=== PATIENT | male | born 1950 | race Caucasian/White ===

== ENCOUNTER 2021-07-09 10:21 | Emergency (ER) | payer MEDICARE, OTHER ==
[~2021-07-09] VITALS: Ht 175.3 cm; Wt 99.5 kg
--- NOTE | 2021-07-09 10:42 | PHYS DOC ---
General Adult EDM: Chief Complaint: CHEST PAIN HPI: HPI: Patient is a 71 year old male who presents via EMS from home for reports of chest pain and dizziness. Symptoms began 35 or 45 minutes prior to him calling EMS. He took 2 nitroglycerin at home, this resolved his chest pain. EMS gave 324 mg aspirin in route. He denies any active chest pain, he denies dyspnea, he denies dizziness. When he did have a chest pain, he described midsternal pressure, with mild dyspnea. This is resolved after nitroglycerin. He denies diaphoresis, abdominal pain, nausea or vomiting. He denies numbness, tingling, motor weakness. He denies syncope or near syncope. He reports he feels much better currently. 6 days ago, he went to [facility] for chest pain, and based on his description it sounds like he was diagnosed with a non-ST elevation MT. The next day, i.e. 5 days ago, he went to cardiac [employer] Car[employer], he reports that he had 3 stents placed in at least 2 vessels. He knows that at least one of the stents was placed in the " maker." He has a history of peripheral artery disease and claudication. He has had multiple bilateral femoral artery stent revisions and it sounds like he has an aortofemoral stent in place. He is anticoagulated with warfarin, aspirin, and Plavix. He reports compliance with all medications. He is taking metoprolol as well as a statin medication. He reports compliance with this as well. He was under the impression that if he had to take more than 1 nitroglycerin to relieve chest pain, he should call 911. He has never been to this facility previously. All of his primary care physicians and specialists, including his chief security officer, are at [facility] associated with [facility]. He does not know the name of his chief security officer at [facility]. Unfortunately, our fax machine is not functional at present, therefore we are unable to fax medical record requests at this time. Review of Systems: Review of Systems: Constitutional: Denies fever or chills. [] HENT: Denies nasal congestion or sore throat. [] Respiratory: Denies cough. Reports shortness of breath. Cardiovascular: Reports chest pain, now resolved. Denies syncope or peripheral edema. GI: Denies abdominal pain, nausea, vomiting Musculoskeletal: Denies back pain or joint pain. [] Integument: Denies rash. [] Neurologic: Denies headache, focal weakness or sensory changes. Reports dizziness, currently resolved. Psychiatric: Denies depression or anxiety. [] Heart Score: C/O Chest Pain: Yes HEART Score for Chest Pain: HEART Score for Chest Pain Response (Comments) Value History Moderately Suspicious 1 ECG Nonspecific Repolarizatio 1 Age > 65 2 Risk Factors >3 Risk Factors or Hx CAD 2 Troponin >3 x Normal Limit 2 Total 8 Risk Factors: Risk Factors: DM, Current or recent (<one month) smoker, HTN, HLP, family history of CAD, obesity. Risk Scores: Score 0 - 3: 2.5% MACE over next 6 weeks - Discharge Home Score 4 - 6: 20.3% MACE over next 6 weeks - Admit for Clinical Observation Score 7 - 10: 72.7% MACE over next 6 weeks - Early Invasive Strategies Physical Exam: PE: Constitutional: Well developed, well nourished, no acute distress, non-toxic appearance. [] HENT: Normocephalic, atraumatic Eyes: Sclera are clear and anicteric Neck: Normal range of motion, no tenderness, supple, no stridor. Trachea midline, no JVD Cardiovascular:Heart rate regular rhythm, was 2 radial and +2 posterior tibial pulses bilaterally. Lungs & Thorax: Bilateral breath sounds clear to auscultation, no rales, rhonchi or wheezes. Abdomen: Abdomen is soft, nondistended, nontender to palpation. No palpable pulsatile mass. No audible bruit. Skin: Warm, dry, no erythema, no rash. No jaundice. No pallor. Back: No tenderness, no CVA tenderness. [] Extremities: No tenderness, no cyanosis, no clubbing, ROM intact, bilateral, symmetric 1+ nonpitting lower extremity edema, no calf tenderness Neurologic: He is awake, alert, oriented x3, no facial asymmetry, ambulatory with a steady gait, gross motor function appears to be normal, speech is clear and fluent Psychologic: Affect normal, judgement normal, mood normal. [] EKG: EKG: EKG is interpreted at 1033 Rhythm is sinus Rate is 51 bpm [place] is left artifact No STEMI No acute ischemia EKG is interpreted at 1105 Rhythm is sinus Rate is 54 bpm [place] is left No STEMI No acute ischemia Radiology/Procedures: Radiology/Procedures: IMAGING REPORT Signed PATIENT: PATRICE MEDRANO ACCOUNT: [id number] : 1950 LOCATION: ER AGE: 71 SEX: M EXAM STATUS: PRE ER ORD. PHYSICIAN: GUZMAN ULRICH DO REASON: chest pain PROCEDURE: PORTABLE CHEST 1V XR CHEST 1V Clinical Indication: Reason: chest pain / Spl. Instructions: / History: Comparison: None. Findings: Atherosclerotic aortic arch. The cardiomediastinal silhouette is normal. Lungs are clear. There is no pneumothorax. No pleural effusion is appreciated. No acute bone abnormality. IMPRESSION: No acute cardiopulmonary process. Electronically signed by: Sekou Reynaga MD (07/09/2021 11:02 AM) [id number] DICTATED and SIGNED BY: SEKOU REYNAGA MD DATE: 07/09/21 [id number] 0 Course & Med Decision Making: Course & Med Decision Making Pertinent Labs and Imaging studies reviewed. (See chart for details) The patient has remained chest pain-free here. He reports no further dizziness or dyspnea. He has some bradycardia, this has been longstanding for him. He is vital signs have otherwise been stable. He manifest no evidence of distress. First troponin is elevated. I am unsure what his baseline is or what this compares to with his regular troponin test from [facility]. I have recommended hospitalization, serial troponin exams and cardiology consultation. He request transfer to [facility], I contacted them, and the patient was accepted for transfer/admission by hospitalist, Dr. Clark. Silvestre Disclaimer: Silvestre Disclaimer: This electronic medical record was generated, in whole or in part, using a voice recognition dictation system. Departure Departure Impression: Primary Impression: Chest pain Additional Impressions: Coronary artery disease History of coronary artery stent placement Elevated troponin level History of myocardial infarction Disposition: 02 SHORT TERM HOSPITAL ([facility]) Condition: STABLE GUZMAN ULRICH DO Jul 09, 2021 10:42
[2021-07-09 10:52] LABS: BASO # 0.1 x10^3/uL (0.0-0.2); BASO % 1 % (0-3); EOS # 0.1 x10^3/uL (0.0-0.7); EOS % 1 % (0-3); HEMATOCRIT 53.1 % (39.0-53.0); HEMOGLOBIN 17.1 g/dL (13.0-17.5); LYMPH # 2.3 x10^3/uL (1.0-4.8); LYMPH % 26 % (24-48); MEAN CORPUSCULAR HEMOGLOBIN 32 pg (25-35); MEAN CORPUSCULAR HGB CONC 32 g/dL (31-37); MEAN CORPUSCULAR VOLUME 98 fL (79-100); MONO # 0.6 x10^3/uL (0.0-1.1); MONO % 6 % (0-9); NEUT # 5.9 x10^3/uL (1.8-7.7); NEUT % 66 % (31-73); PLATELET COUNT 232 x10^3/uL (140-400); RED BLOOD COUNT 5.44 x10^6/uL (4.30-5.70); WHITE BLOOD COUNT 8.9 x10^3/uL (4.0-11.0)
--- NOTE | 2021-07-09 11:04 | RAD ---
XR CHEST 1V Clinical Indication: Reason: chest pain / Spl. Instructions: / History: Comparison: None. Findings: Atherosclerotic aortic arch. The cardiomediastinal silhouette is normal. Lungs are clear. There is no pneumothorax. No pleural effusion is appreciated. No acute bone abnormality. IMPRESSION: No acute cardiopulmonary process. Electronically signed by: Sekou Reynaga MD (07/09/2021 11:02 AM) [id number]
[2021-07-09 11:06] LABS: CALCIUM 9.3 mg/dL (8.5-10.1); GFR 73.9
[2021-07-09 11:12] LABS: ALBUMIN 3.7 g/dL (3.4-5.0); ALBUMIN/GLOBULIN RATIO 1.1 (1.0-1.7); MAGNESIUM 2.1 mg/dL (1.8-2.4); TOTAL BILIRUBIN 0.5 mg/dL (0.2-1.0); TOTAL PROTEIN 7.2 g/dL (6.4-8.2)
[2021-07-09 11:29] LABS: BACTERIA,URINE 0 /HPF (0-FEW); BILIRUBIN,URINE NEGATIVE (NEG); CLARITY,URINE HAZY; COLOR,URINE YELLOW; NITRITE,URINE NEGATIVE (NEG); PH,URINE 5.5 (<5.0-8.0); PROTEIN,URINE 30 mg/dL (NEG-TRACE); UROBILINOGEN,URINE 0.2 mg/dL (0.2 mg/dL); WBC,URINE 0 /HPF (0-4)
--- NOTE | 2021-07-09 12:53 | EKG ---
[facility] [address] [place] [address] Test Date: 2021-07-09 Test Time: 10:32:58 Pat Name: PATRICE MEDRANO Department: Room: Gender: M Under Tr[employer]: : 1950 Requested By: GUZMAN ULRICH Order Number: [id number] Reading MD: Kermit Rojas Measurements Intervals [place] Rate: 51 P: 49 ID: [id number] QRS: 0 QRSD: 92 T: 39 QT: 378 QTc: 350 Interpretive Statements SINUS RHYTHM LEFT ATRIAL ABNORMALITY LEFTWARD AXIS Electronically Signed On 07-10-2021 8:30:09 COATER ASSOCIATE by Kermit Rojas
--- NOTE | 2021-07-09 12:53 | EKG ---
[facility] [address] [place] [address] Test Date: 2021-07-09 Test Time: 11:02:21 Pat Name: PATRICE MEDRANO Department: Room: Gender: M Superintendent System Operation: : 1950 Requested By: GUZMAN ULRICH Order Number: [id number] Reading MD: Kermit Rojas Measurements Intervals [place] Rate: 54 P: 62 NV: 154 QRS: 7 QRSD: 90 T: 39 QT: 386 QTc: 368 Interpretive Statements SINUS RHYTHM LEFT ATRIAL ABNORMALITY Electronically Signed On 07-10-2021 8:29:52 COMMUNITY HEALTH SPECIALIST by Kermit Rojas
[2021-07-09 15:38] VITALS: BP 131/61
== END 2021-07-09 15:55 | disposition short-term general hospital (02) ==
LOC: ER 10:21
DX: R07.89 Other chest pain (principal); I25.10 Atherosclerotic heart disease of native coronary artery without angina pectoris; R77.8 Other specified abnormalities of plasma proteins; I25.2 Old myocardial infarction; Z95.5 Presence of coronary angioplasty implant and graft
CPT/HCPCS: 36415; 71045; 80053; 81001; 83690; 83735; 83880; 84484; 85025; 93005; 99285-25